=== PATIENT | female | born 1975 | race Two or more races ===

== ENCOUNTER 2018-11-24 07:58 | Day surgery (SDC) | payer MEDICARE, OTHER ==
[2018-11-23 11:07] LABS: Urine WBC None Seen /hpf (0 - 5)
[2018-11-23 11:23] LABS: Basophils # (auto) 0.1 uL; Eosinophils # (auto) 0 uL; Eosinophils % (auto) 0.4 % (0.0-7.0); Hemoglobin 13.5 g/dL (12.2-16.2); Lymphocytes # (auto) 2.4 uL; Lymphocytes % (auto) 28.5 % (10.0-50.0); Mean Corpuscular Hemoglobin 27.6 pg (28.0-32.0); Mean Corpuscular Hgb Conc. 31.4 g/dL (32.0-36.0); Mean Corpuscular Volume 87.8 fL (80.0-100.0); Monocytes # (auto) 0.5 uL; Monocytes % (auto) 5.3 % (0.0-12.0); Neutrophils # (auto) 5.5 uL; Neutrophils % (auto) 64.8 % (37.0-80.0); Platelet Count (auto) 259 10^3/uL (140-450); Red Cell Distribution Width 15.5 % (11.8-14.3); White Blood Cell 8.5 10^3/uL (4.4-10.8)
[2018-11-23 11:30] LABS: Urine Amorphous Crystal FEW /hpf (None Seen); Urine Bacteria NONE SEEN /hpf (None Seen); Urine Blood Negative /uL (Negative); Urine Specific Gravity 1.019 (1.001-1.035)
[2018-11-23 11:37] LABS: INR 0.96 (0.9-1.15); Partial Thromboplastin Time 33.2 sec (23.78-33.04)
[2018-11-23 11:45] LABS: Albumin 3.6 g/dL (3.4-5.0); Potassium 3.8 mmol/L (3.5-5.1)
[2018-11-23 11:49] LABS: BUN/Creatinine Ratio 12.9; Bilirubin, Total 0.3 mg/dL (0.2-1.0); Total Protein 7.7 g/dL (6.4-8.2)
[~2018-11-24] VITALS: Ht 152.4 cm; Wt 95.3 kg
[~2018-11-24 07:58] MED LIST: CITA10TA59 OR; LACO50TA2 OR; LAMO200T4 OR; TOPI200T43 OR; ZONI100C35 OR
[2018-11-24] MEDS ORDERED: ceFAZolin 1GM/50ML 50 ML IV ONE (09:25)
[2018-11-24] MEDS ORDERED: LIDOCAINE 1% HCL (LOCAL ANESTH.) INJ 20ML MDV ONE (11:54)
[2018-11-24] MEDS ORDERED: SUCCINYLCHOLINE CHLORIDE 20 MG/ML 10ML VIAL IV ONE (11:54)
[2018-11-24] MEDS ORDERED: MIDAZOLAM HCL 1MG/1ML-2 ML VIAL ONE (12:12)
[2018-11-24] MEDS ORDERED: PROPOFOL 10 MG/ML 20 ML IV ONE (12:12)
[2018-11-24] MEDS ORDERED: ROCURONIUM 10MG/ML 10ML VIAL IV ONE (12:15)
[2018-11-24] MEDS ORDERED: METOCLOPRAMIDE HCL 5MG/ml INJ 2ml VIAL ONE (12:17)
[2018-11-24] MEDS ORDERED: PHENYLEPHRINE HCL 10 MG/ML VL ONE (12:27)
[2018-11-24] MEDS ORDERED: STERILE WATER 10 ML ONE (12:27)
[2018-11-24] MEDS ORDERED: fentaNYL CITRATE 100 MCG/2 ML VL ONE (12:34)
[2018-11-24] MEDS ORDERED: BUPIVACAINE 0.25% INJ 50ML VIAL ONE (12:39)
[2018-11-24] MEDS ORDERED: ACCU-CHEK COMFORT CURVE STRIP VI ONE (12:45)
[2018-11-24] MEDS ORDERED: NALOXONE HCL 0.4 MG/ML VIAL IV PRN (12:45)
[2018-11-24] MEDS ORDERED: ONDANSETRON HCL 4 MG/2 ML VIAL IV ONE (12:45)
[2018-11-24] MEDS: HYDROmorphone HCL 2 MG/ML VL IV PRN ×2 (13:36→13:49)
[2018-11-24 14:07] VITALS: BP 126/72
== END 2018-11-24 14:35 | disposition home or self-care (01) ==
LOC: SUR 07:58
PROVIDERS: ATTEND Orthopaedic Surgery
DX: S52.611A Displaced fracture of right ulna styloid process, initial encounter for closed fracture (principal); S52.511A Displaced fracture of right radial styloid process, initial encounter for closed fracture; G40.909 Epilepsy, unspecified, not intractable, without status epilepticus; E66.9 Obesity, unspecified; E11.9 Type 2 diabetes mellitus without complications; F32.9 Major depressive disorder, single episode, unspecified; R10.2 Pelvic and perineal pain; X58.XXXA Exposure to other specified factors, initial encounter; Y93.89 Activity, other specified; Y92.89 Other specified places as the place of occurrence of the external cause; Y99.8 Other external cause status
CPT/HCPCS: 25607; 25652; 36415; 73100; 76000; 80053; 81001; 82962; 83036; 84702; 85025; 85610; 85730; C1713; J0330; J0690; J1170; J2001; J2250; J2370; J2704; J2765; J3010; J3490